=== PATIENT | male | born 1980 | race African-American/Black ===

== ENCOUNTER 2017-02-11 00:08 | Emergency (ER) | payer SELFPAY ==
[~2017-02-11] VITALS: Ht 180.3 cm; Wt 80.0 kg
[2017-02-11 00:11] VITALS: BP 132/78; PULSE 104; RESP 16; TEMP 98.1; O2SAT 96
[2017-02-11] MEDS ORDERED: SODIUM CHLOR 0.9% 1000 ML INJ 1,000 ML IV ONE (00:45)
--- NOTE | 2017-02-11 00:46 | PD ---
HPI Chief Complaint: Abdominal Pain Time Seen by Provider: 00:24 Travel History International Travel<30 days: No Contact w/Intl Traveler<30days: No Traveled to known affect area: No History of Present Illness HPI The patient is a 36 year old male who presents to the [facility] emergency department with a history of diarrhea that began shortly after eating breakfast at approximately 9 AM this morning. He reports that he's had 6 episodes of loose yellow stool. He reports that approximately 2 hours later he began to have a midepigastric abdominal pain. He reports that the pain comes and goes and is sharp/stabbing in character. He denies any alleviating or aggravating factors. He reports that he has had this in the past when he had diarrhea. He reports that the pain has lasted longer than prior episodes. He denies having a primary care physician. He denies ever being evaluated for this previously. The patient denies any foreign travel, recent antibiotic use, sick contacts, or camping. The patient denies any known recent fevers, cough, congestion, neck pain, chest pain, shortness of breath, vomiting, urinary symptoms, or neurologic symptoms. [facility] Past Medical History Narrative Medical Patient's past medical history is significant for none. Medical History: Denies Significant Hx ?: Not Past Surgical History Narrative Surgical The patient's past surgical history is reportedly none. Surgical History: No Previous Surgery Social History Alcohol Use: No Tobacco Use: Yes (CIGS ) Substance Use: Yes (WEED ) Allergies-Medications (Allergen,Severity, Reaction): Coded Allergies: No Known Allergies (Unverified , 02/11/17) Reported Meds & Prescriptions Reported Meds & Active Scripts Active No Active Prescriptions or Reported Medications Review of Systems Except as stated in HPI: all other systems reviewed are Neg General / Constitutional: No: Fever Eyes: No: Visual changes HENT: No: Headaches Cardiovascular: No: Chest Pain or Discomfort Respiratory: No: Shortness of Breath Gastrointestinal: Positive: Diarrhea, Abdominal Pain, Changes in Bowel Habits, No: Nausea, Vomiting, Hematemesis, Hematochezia, Indigestion, Loss of Appetite Genitourinary: No: Dysuria Musculoskeletal: No: Pain Skin: No Rash Neurologic: No: Weakness Psychiatric: No: Depression Endocrine: No: Polydipsia Hematologic/Lymphatic: No: Easy Bruising Physical Exam Narrative General: The patient is a well-developed well-nourished male in no acute distress. Head and Neck exam: Head is normocephalic atraumatic. Eyes: EOMI, pupils are equal round and reactive to light. Nose: Midline septum with pink mucous membranes Mouth: Dentition unremarkable. Moist mucus membranes. Posterior oropharynx is not erythematous. No tonsillar hypertrophy. Uvula midline. Airway patent. Neck: No palpable lymphadenopathy. No nuchal rigidity. No thyromegaly. Cardiovascular: Regular rate and rhythm without murmurs, gallops, or rubs. No pulse deficit to the extremities. Lungs: Clear to auscultation bilaterally. No wheezes, rhonchi, or rales. Abdomen: Soft, with reported discomfort on palpation of the midepigastric area, no other tenderness on palpation of the other quadrants of the abdomen. No guarding, rebound, or rigidity. Negative Mildred sign. No tenderness on palpation of McBurney's point. Normal bowel sounds are audible. Extremities: No clubbing, cyanosis, or edema. No calf tenderness on palpation. Back: No costovertebral angle tenderness to palpation. Neurologic Exam: Grossly nonfocal. Skin Exam: No rash noted. Intact skin that is warm and dry. Data Data Last Documented VS Vital Signs Date Time Temp Pulse Resp B/P Pulse Ox O2 Delivery O2 Flow Rate FiO2 02/11/17 00:11 98.1 104 16 132/78 96 Room Air Orders Complete Blood Count With Diff (02/11/17 00:42) Comprehensive Metabolic Panel (02/11/17 00:42) C-Reactive Protein (Crp) (02/11/17 00:42) Lipase (02/11/17 00:42) Urinalysis - C+S If Indicated (02/11/17 00:42) Magnesium (Mg) (02/11/17 00:42) Iv Access Insert/Monitor (02/11/17 00:42) Ecg Monitoring (02/11/17 00:42) Oximetry (02/11/17 00:42) Sodium Chlor 0.9% 1000 Ml Inj (Ns 1000 M (02/11/17 00:45) MDM Medical Decision Making Medical Screen Exam Complete: Yes Emergency Medical Condition: Yes Medical Record Reviewed: Yes Differential Diagnosis Viral versus bacterial gastroenteritis, versus electrolyte derangements, versus dehydration, versus pancreatitis Narrative Course During the course of the patients emergency department visit, the patients history, examination, and differential diagnosis were reviewed with the patient. The patient had IV access written to be obtained obtained along with blood work and urinalysis ordered. The patient was placed on a quality assurance monitor with oximetry and blood pressure monitoring The patient was initially ordered normal saline 1 L IV fluid bolus. Unfortunately when the patient's nurse arrived at the bedside to start the IV in place the patient on the monitor, the patient reported that he did not want laboratory studies done. The patient elected to instead leave AGAINST MEDICAL ADVICE prior to the completion of his workup. AMA: The risks of leaving against medical advice without further evaluation treatment were discussed with the patient. These risks include cardiac dysrhythmia due to electrolyte derangements, acute renal insufficiency related to dehydration, both of which could lead to . The patient indicated understanding of these risks and appeared to have the capacity to make this decision. Diagnosis Primary Impression: Diarrhea Qualified Code: R19.7 - Diarrhea, unspecified type Additional Impression: Abdominal pain Qualified Code: R10.13 - Epigastric pain Referrals: Primary Care Physician 1 day Patient Instructions: Abdominal Pain (ED), Acute Diarrhea (ED), General Instructions Scripts No Active Prescriptions or Reported Meds Disposition: 07 AGAINST MEDICAL ADVICE Condition: Stable Selma Perez MD Feb 11, 2017 00:46
== END 2017-02-11 02:27 | disposition left against medical advice (07) ==
LOC: NEPE 00:08
DX: R19.7 Diarrhea, unspecified (principal); R10.13 Epigastric pain
CPT/HCPCS: 99281

== ENCOUNTER 2017-03-18 11:20 | Emergency (ER) | payer SELFPAY ==
[~2017-03-18] VITALS: Ht 177.8 cm; Wt 77.0 kg
[2017-03-18 11:21] VITALS: BP 139/90; PULSE 64; RESP 16; TEMP 97.9; O2SAT 99
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
[2017-03-18] MEDS ORDERED: NAPR500 PO (11:39)
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
== END 2017-03-18 12:39 | disposition home or self-care (01) ==
LOC: NEPD 11:20
DX: S39.012A Strain of muscle, fascia and tendon of lower back, initial encounter (principal); M25.512 Pain in left shoulder; F17.210 Nicotine dependence, cigarettes, uncomplicated; V49.60XA Unspecified car occupant injured in collision with unspecified motor vehicles in traffic accident, initial encounter
CPT/HCPCS: 99283

== ENCOUNTER 2017-06-03 09:18 | Emergency (ER) | payer SELFPAY ==
[~2017-06-03] VITALS: Ht 175.3 cm; Wt 70.5 kg
[~2017-06-03 09:18] MED LIST: NAPR500 PO
[2017-06-03 09:20] VITALS: BP 123/85; PULSE 54; RESP 16; TEMP 98.2; O2SAT 98
[2017-06-03 10:48] LABS: AUTOMATED NEUTROPHIL # 1.9 TH/MM3 (1.8-7.7); BASOPHIL % 0.6 % (0.0-2.0); EOSINOPHIL # 0.3 TH/MM3 (0-0.4); EOSINOPHIL % 7.3 % (0.0-4.0); HEMATOCRIT 47.5 % (39.0-51.0); HEMO FLAGS DIFF FINAL; LYMPH % 43.7 % (9.0-44.0); LYMPHOCYTE # 2.1 TH/MM3 (1.0-4.8); MEAN CELL VOLUME 94.4 FL (80.0-100.0); MEAN CORPUSCULAR HEMOGLOBIN 31.7 PG (27.0-34.0); MEAN CORPUSCULAR HGB CONC 33.5 % (32.0-36.0); MONO % 9.4 % (0.0-8.0); PLATELET COUNT 204 TH/MM3 (150-450); RED BLOOD COUNT 5.03 MIL/MM3 (4.50-5.90); RED CELL DISTRIBUTION WIDTH 13.4 % (11.6-17.2); WHITE BLOOD COUNT 4.8 TH/MM3 (4.0-11.0)
[2017-06-03 11:02] LABS: ANION GAP 7 MEQ/L (5-15); AST (GOT) 20 U/L (15-37); BICARBONATE 30.2 MEQ/L (21.0-32.0); BLOOD UREA NITROGEN 11 MG/DL (7-18); CHLORIDE 103 MEQ/L (98-107); GLOMERULAR FILTRATION RATE 88 ML/MIN (>89); POTASSIUM 3.5 MEQ/L (3.5-5.1); SODIUM (NA) 140 MEQ/L (136-145)
[2017-06-03 11:06] LABS: ALKALINE PHOSPHATASE 70 U/L (45-117); ALT (GPT) 31 U/L (12-78); TOTAL BILIRUBIN ADULT 2.1 MG/DL (0.2-1.0)
--- NOTE | 2017-06-03 11:25 | PD ---
HPI Chief Complaint: Psychiatric Symptoms Time Seen by Provider: 10:56 Travel History International Travel<30 days: No Contact w/Intl Traveler<30days: No Traveled to known affect area: No History of Present Illness HPI This patient reports that he's been feeling depressed and having some suicidal thoughts. Duration 3 days. He denies prior psychiatric history. He denies alcohol or drug abuse. He is a cigarette smoker. He denies any medical illness. Some severity is moderate. No alleviating factors. He denies exacerbating factors. He wants to talk to someone about these thoughts. PFSH Social History Alcohol Use: No Tobacco Use: Yes (CIGS ) Substance Use: Yes (WEED ) Allergies-Medications (Allergen,Severity, Reaction): Coded Allergies: No Known Allergies (Unverified , 06/03/17) Reported Meds & Prescriptions Reported Meds & Active Scripts Active No Active Prescriptions or Reported Medications Review of Systems General / Constitutional: No: Fever Eyes: No: Visual changes HENT: No: Headaches Cardiovascular: No: Chest Pain or Discomfort Respiratory: No: Shortness of Breath Gastrointestinal: No: Abdominal Pain Genitourinary: No: Dysuria Musculoskeletal: No: Pain Skin: No Rash Neurologic: No: Weakness Psychiatric: Positive: Depression, Suicidal Ideations Endocrine: No: Polydipsia Hematologic/Lymphatic: No: Easy Bruising Physical Exam Narrative GENERAL: Well-nourished, well-developed patient in no apparent distress. SKIN: Focused skin assessment reveals no rash and nodules. Skin is Warm and dry. HEAD: Atraumatic. Normocephalic. EYES: Pupils equal and round. No scleral icterus. No injection or drainage. ENT: No nasal bleeding or discharge. Mucous membranes pink and moist. NECK: Trachea midline. No JVD. CARDIOVASCULAR: Regular rate and rhythm. No murmur appreciated. RESPIRATORY: No accessory muscle use. Clear to auscultation. Breath sounds equal bilaterally. GASTROINTESTINAL: Abdomen soft, non-tender, nondistended. Hepatic and splenic margins not palpable. MUSCULOSKELETAL: No obvious deformities. No clubbing. No cyanosis. No edema. NEUROLOGICAL: Awake and alert. No obvious cranial nerve deficits. Motor grossly within normal limits. Normal speech. PSYCHIATRIC: Doesn't seem to have a depressed mood or flat affect; insight and judgment questionable. Data Data Last Documented VS Vital Signs Date Time Temp Pulse Resp B/P (MAP) Pulse Ox O2 Delivery O2 Flow Rate FiO2 06/03/17 14:40 97.8 76 17 118/81 (93) 99 Orders Orders Complete Blood Count With Diff (06/03/17 09:49) Comprehensive Metabolic Panel (06/03/17 09:49) Psych Screen (06/03/17 09:49) Drug Screen, Random Urine (06/03/17 09:49) Labs Laboratory Tests Test 06/03/17 09:58 White Blood Count 4.8 TH/MM3 Red Blood Count 5.03 MIL/MM3 Hemoglobin 15.9 GM/DL Hematocrit 47.5 % Mean Corpuscular Volume 94.4 FL Mean Corpuscular Hemoglobin 31.7 PG Mean Corpuscular Hemoglobin Concent 33.5 % Red Cell Distribution Width 13.4 % Platelet Count 204 TH/MM3 Mean Platelet Volume 10.7 FL Neutrophils (%) (Auto) 39.0 % Lymphocytes (%) (Auto) 43.7 % Monocytes (%) (Auto) 9.4 % Eosinophils (%) (Auto) 7.3 % Basophils (%) (Auto) 0.6 % Neutrophils # (Auto) 1.9 TH/MM3 Lymphocytes # (Auto) 2.1 TH/MM3 Monocytes # (Auto) 0.4 TH/MM3 Eosinophils # (Auto) 0.3 TH/MM3 Basophils # (Auto) 0.0 TH/MM3 CBC Comment DIFF FINAL Differential Comment Blood Urea Nitrogen 11 MG/DL Creatinine 1.15 MG/DL Random Glucose 95 MG/DL Total Protein 8.2 GM/DL Albumin 4.6 GM/DL Calcium Level 9.7 MG/DL Alkaline Phosphatase 70 U/L Aspartate Amino Transf (AST/SGOT) 20 U/L Alanine Aminotransferase (ALT/SGPT) 31 U/L Total Bilirubin 2.1 MG/DL Sodium Level 140 MEQ/L Potassium Level 3.5 MEQ/L Chloride Level 103 MEQ/L Carbon Dioxide Level 30.2 MEQ/L Anion Gap 7 MEQ/L Estimat Glomerular Filtration Rate 88 ML/MIN Urine Opiates Screen NEG Urine Barbiturates Screen NEG Urine Amphetamines Screen NEG Urine Benzodiazepines Screen NEG Urine Cocaine Screen POS Urine Cannabinoids Screen POS MDM Medical Decision Making Medical Screen Exam Complete: Yes Emergency Medical Condition: Yes Medical Record Reviewed: Yes Differential Diagnosis Depression, suicidal ideation, adjustment disorder Narrative Course I have reviewed the patient's electronic medical record. Patient was here March 2017 for back pain I've ordered medical clearance workup. CBC is normal Metabolic profile is normal Tox screen is positive for cocaine and marijuana. Psychiatric screening has been ordered as he specifically came here for that and requests it. Psychiatry and screen the patient. I spoke with the psychiatric team. They don 't feel he represents a danger to himself or others. They're recommending discharge. They have given him a resource packet to hopefully addresses drug abuse. Patient was more forthcoming with them. He is recently out of [facility] and homeless and wanted a place to stay. He really doesn't intend to harm himself. Stable for outpatient follow-up. Diagnosis Primary Impression: Adjustment disorder with depressed mood Additional Impression: Polysubstance abuse Additional Instructions: Follow-up with primary care physician and [facility] Med/Other Pt SpecificInfo: Other Scripts No Active Prescriptions or Reported Meds Disposition: 01 DISCHARGE HOME Condition: Stable Tato Soares MD Jun 03, 2017 11:25
--- NOTE | 2017-06-03 13:42 | PD ---
History of Present Illness Chief Complaint: Psychiatric Symptoms Time Seen by Provider: 13:25 Travel History International Travel<30 Days: No Contact w/Intl Traveler<30days: No Known affected area: No Legal Status Legal Status: Voluntary History of Present Illness: History of Present Illness HPI This patient is a 37year old male who presents to the ED on a voluntary basis requesting a psychiatric evaluation and reports that he's been feeling depressed and having some suicidal thoughts. He has no formulated plan and he has no previous suicdal attempts. He denies prior psychiatric history. He denies alcohol or drug abuse although he later admits to use of cocaine as well as marijuana with positive toxicology . EMR reviewed. No previous contact with psychiatric dept at [facility]. Patient is sleeping. Awakens easily. Speech is clear, logical and goal directed. Does not appear internally preoccupied. No eloise or hypomania. No objective clinical signs of depression or anxiety. Patient states " I feel like I am disabled." Like for example; I have no place to stay and I just walk around all night long. I can't keep money since I give it out to people who ask me, I can't keep a job". People are trying to take me for money. It happens when I use cocaine, people start acting weird." He came to the hospital for help. " Whatever you people do to help is what I am here for" . He is considering treatment for his use of substances. Patient with no suicdal ideation. No homicidal ideation as well. Reports it has been happening since 2010 In terms of substance use he admits to using marijuana and cocaine. Last used yesterday. PFSH Past Medical History Anxiety: Yes Diminished Hearing: No Tetanus Vaccination: > 5 Years Influenza Vaccination: No Past Surgical History Surgical History: No Previous Surgery Psychiatric History Psychiatric History Hx Psychiatric Treatment: NOne. Only receives treatmen while in correction and " when I fight or get in trouble". . Legal hx; Recent arrest and released beginning of May 2017. History of Inpatient Treatment: No Guns or firearms in home: No Social History Born in [place]. In [place] x 25 years. Has completed a GED. Works in different jobs. His mother, brother and aunts live here. Has communication with a sister in [place]. Hx Alcohol Use: No Hx Tobacco Use: Yes (CIGS ) Hx Substance Use: Yes (WEED ) Substance Use Type: Marijuana, Cocaine (Reports last used cocaine yesterday) Hx of Substance Use Treatment: No Family Psychiatric History None reported Allergies-Medications (Allergen,Severity, Reaction): Coded Allergies: No Known Allergies (Unverified , 06/03/17) Reported Meds & Prescriptions Reported Meds & Active Scripts Active No Active Prescriptions or Reported Medications Review of Systems Except as stated in HPI: all other systems reviewed are Neg Exam Alert: Yes Bronson: Person (ox4) Mood: Calm Affect: Appropriate Speech: Clear, Logical Eye Contact: Normal Memory Intact: Comment (No impairment) Delusions: No Suicidal: Ideation (denies any) Homicidal: Ideation (Denies any) Insight/Judgement Poor. Poor MDM Medical Decision Making Medical Record Reviewed: Yes Assessment/Plan This patient is a [age] male with no psychiatric history who presents to the ED on a voluntary basis reporting that he's been feeling depressed and having some suicidal thoughts. No plans . He denies alcohol or drug abuse but his toxicology is positive for cocaine and cannabinoid . He later admits to using cocaine as well as marijuana. He is not psychotic and he is not manic . He is cognitively intact. Does not meet criteria for BA neither does he present any acute psychiatric symptomatology . He appears to be malingering for longterm as he is homeless. He requests to speak with someone about what services can be provided here at the hospital . I have advised him that his symptoms are most likely as the result of his use of substances He accepts referral to [facility] and is provided with referral packet. He also asks for food before he leaves the ED. Case discussed with Dr. puente Cleared form psychiatry for discharge from ED. Orders Orders Complete Blood Count With Diff (06/03/17 09:49) Comprehensive Metabolic Panel (06/03/17 09:49) Psych Screen (06/03/17 09:49) Drug Screen, Random Urine (06/03/17 09:49) Results Vital Signs Date Time Temp Pulse Resp B/P (MAP) Pulse Ox O2 Delivery O2 Flow Rate FiO2 06/03/17 09:20 98.2 54 16 123/85 (98) 98 Laboratory Tests Test 06/03/17 09:58 White Blood Count 4.8 Red Blood Count 5.03 Hemoglobin 15.9 Hematocrit 47.5 Mean Corpuscular Volume 94.4 Mean Corpuscular Hemoglobin 31.7 Mean Corpuscular Hemoglobin Concent 33.5 Red Cell Distribution Width 13.4 Platelet Count 204 Mean Platelet Volume 10.7 Neutrophils (%) (Auto) 39.0 Lymphocytes (%) (Auto) 43.7 Monocytes (%) (Auto) 9.4 Eosinophils (%) (Auto) 7.3 Basophils (%) (Auto) 0.6 Neutrophils # (Auto) 1.9 Lymphocytes # (Auto) 2.1 Monocytes # (Auto) 0.4 Eosinophils # (Auto) 0.3 Basophils # (Auto) 0.0 CBC Comment DIFF FINAL Differential Comment Blood Urea Nitrogen 11 Creatinine 1.15 Random Glucose 95 Total Protein 8.2 Albumin 4.6 Calcium Level 9.7 Alkaline Phosphatase 70 Aspartate Amino Transf (AST/SGOT) 20 Alanine Aminotransferase (ALT/SGPT) 31 Total Bilirubin 2.1 Sodium Level 140 Potassium Level 3.5 Chloride Level 103 Carbon Dioxide Level 30.2 Anion Gap 7 Estimat Glomerular Filtration Rate 88 Urine Opiates Screen NEG Urine Barbiturates Screen NEG Urine Amphetamines Screen NEG Urine Benzodiazepines Screen NEG Urine Cocaine Screen POS Urine Cannabinoids Screen POS Diagnosis Primary Impression: Cocaine abuse Additional Impression: Substance induced mood disorder Psychiatrically Cleared: Yes Med/ Other Pt Specific Info: No Meds Exist/No RX given Prescriptions No Active Prescriptions or Reported Meds Disposition: 01 DISCHARGE HOME Condition: Stable Problem Qualifiers Reema Brown [facility] Jun 03, 2017 13:42
--- NOTE | 2017-06-03 14:37 | PD ---
Physical Exam Date Seen by Provider: Jun 03, 2017 Time Seen by Provider: 14:36 Narrative Patient seen by psych and cleared for discharge. Patient denies any suicide or homicidal ideation. he tells me he is ready to go home. Data Data Last Documented VS Vital Signs Date Time Temp Pulse Resp B/P (MAP) Pulse Ox O2 Delivery O2 Flow Rate FiO2 06/03/17 09:20 98.2 54 16 123/85 (98) 98 Orders Orders Complete Blood Count With Diff (06/03/17 09:49) Comprehensive Metabolic Panel (06/03/17 09:49) Psych Screen (06/03/17 09:49) Drug Screen, Random Urine (06/03/17 09:49) Labs Laboratory Tests Test 06/03/17 09:58 White Blood Count 4.8 TH/MM3 Red Blood Count 5.03 MIL/MM3 Hemoglobin 15.9 GM/DL Hematocrit 47.5 % Mean Corpuscular Volume 94.4 FL Mean Corpuscular Hemoglobin 31.7 PG Mean Corpuscular Hemoglobin Concent 33.5 % Red Cell Distribution Width 13.4 % Platelet Count 204 TH/MM3 Mean Platelet Volume 10.7 FL Neutrophils (%) (Auto) 39.0 % Lymphocytes (%) (Auto) 43.7 % Monocytes (%) (Auto) 9.4 % Eosinophils (%) (Auto) 7.3 % Basophils (%) (Auto) 0.6 % Neutrophils # (Auto) 1.9 TH/MM3 Lymphocytes # (Auto) 2.1 TH/MM3 Monocytes # (Auto) 0.4 TH/MM3 Eosinophils # (Auto) 0.3 TH/MM3 Basophils # (Auto) 0.0 TH/MM3 CBC Comment DIFF FINAL Differential Comment Blood Urea Nitrogen 11 MG/DL Creatinine 1.15 MG/DL Random Glucose 95 MG/DL Total Protein 8.2 GM/DL Albumin 4.6 GM/DL Calcium Level 9.7 MG/DL Alkaline Phosphatase 70 U/L Aspartate Amino Transf (AST/SGOT) 20 U/L Alanine Aminotransferase (ALT/SGPT) 31 U/L Total Bilirubin 2.1 MG/DL Sodium Level 140 MEQ/L Potassium Level 3.5 MEQ/L Chloride Level 103 MEQ/L Carbon Dioxide Level 30.2 MEQ/L Anion Gap 7 MEQ/L Estimat Glomerular Filtration Rate 88 ML/MIN Urine Opiates Screen NEG Urine Barbiturates Screen NEG Urine Amphetamines Screen NEG Urine Benzodiazepines Screen NEG Urine Cocaine Screen POS Urine Cannabinoids Screen POS MDM Medical Record Reviewed: Yes Supervised Visit with SAVANNAH: No Differential Diagnosis drug induced mood disorder Narrative Course patient cleared for discharge Diagnosis Primary Impression: Cocaine abuse Additional Impression: Substance induced mood disorder Patient Instructions: General Instructions Scripts No Active Prescriptions or Reported Meds Disposition: 01 DISCHARGE HOME Condition: Stable Kari Conroy Jun 03, 2017 14:37
[2017-06-03 14:40] VITALS: BP 118/81; TEMP 97.8
== END 2017-06-03 14:46 | disposition home or self-care (01) ==
LOC: NEPD 09:18
DX: F14.14 Cocaine abuse with cocaine-induced mood disorder (principal); F17.210 Nicotine dependence, cigarettes, uncomplicated; F12.90 Cannabis use, unspecified, uncomplicated
CPT/HCPCS: 80053; 80307; 85025; 99283